=== PATIENT | male | born 1990 | race Caucasian/White ===

== ENCOUNTER 2016-04-16 19:46 | Emergency (ER) | payer OTHER ==
[2016-04-16] MEDS ORDERED: LETS SOLN TOPICAL 1 EA SYR TP ONE (19:55)
[2016-04-16 20:19] VITALS: BP 154/85; PULSE 76; RESP 14; TEMP 98.2; O2SAT 96
[2016-04-16] MEDS ORDERED: TDAP ADULT 0.5 ML INJ (BOOSTRIX) IM ONE (20:47)
[2016-04-16] MEDS ORDERED: HYDROCOD/APAP 5/325 PREPACK#6 BTL TAKEHOME ONE (22:19)
--- NOTE | 2016-04-16 23:00 | UCPHY ---
H & P Time Seen by Provider: 04/16/16 19:56 Patient Type: New HPI/ROS: This patient sustained lacerations to his left thumb, right ring finger and 5th finger from a pinch injury while lifting a heavy refrigerator into pickup truck shortly prior to arrival. He reports moderate pain to the skin on the affected fingers but no bony pain. The injury occurred shortly prior to arrival while he in roommates were attempting with to have the refrigerator. ROS: No numbness or tingling. No difficulty moving the affected fingers. No other injuries. 5 point ROS is otherwise negative. Past Medical/Surgical History: Otherwise healthy Smoking Status: Never smoked Physical Exam: Physical Exam Vital signs are normal. General: No acute distress Eyes: Pupils equal and react to light. Extraocular motions are intact. Cardiac: Brisk capillary refill is intact throughout. Skin: No rash or pallor. Extremities: Atraumatic except for hands Right hand: Patient has a 5th finger laceration oriented longitudinally from the middle phalanx to the metacarpophalangeal joint with subcutaneous tissue exposed. Flexor tendon is exposed but not injured. Appreciate no foreign bodies. There is mild bleeding. That wound is approximately 2 cm in length The right 4th finger wound extends from the PIP joint to the metacarpophalangeal joint longitudinally approximately 3.7 cm in length Left thumb laceration is a flap-type laceration 2.5 cm in length with moderate bleeding. Subcutaneous tissues evident but no foreign bodies Neuro: Alert with no sensorimotor deficits. Infected fingers. He maintains full range of motion of all affected fingers. Constitutional: Initial Vital Signs Temperature (C) 36.8 C 04/16/16 20:15 Heart Rate 76 04/16/16 20:15 Respiratory Rate 14 04/16/16 20:15 Blood Pressure 154/85 H 04/16/16 20:15 O2 Sat (%) 96 04/16/16 20:15 O2 Delivery Mode Room Air Allergies/Adverse Reactions: No Known Allergies Allergy (Unverified 04/16/16 20:15) Home Medications: Medication Instructions Recorded NK [No Known Home Meds] 04/16/16 MDM/Departure - MDM Procedures: Digital block: After verbal consent, using a 50 50 mix of 0.5% Marcaine 2% plain lidocaine, 27 gauge needle, chlorhexidine scrub under sterile conditions- 3 injections were administered to the base of the 4th and 5th fingers, 6 mL mL 4th, and 5 a mild 5th and with good effect. Patient tolerated this well. There were no complications. Digital block: After verbal consent, using a 50 50 mix of 0.5% Marcaine 2% plain lidocaine, 27 gauge needle, chlorhexidine scrub under sterile conditions- 3 injections were administered to the base of the left thumb, 8 mL with good effect. Patient tolerated this well. There were no complications. The wound is total length of the wounds is 8.5 cm The wound was copiously irrigated with saline. The wound was explored for foreign bodies and none were found. The wound was prepped and draped in the normal sterile fashion. The edges of the 4th finger wound were reapproximated using 15 sutures with 4 0 Ethilon-3 interrupted 12 running with good hemostasis and cosmesis. The 5th finger laceration sutured with 4 0 Ethilon, P3 needle-8 running sutures with good hemostasis and cosmesis. The left thumb is sutured with 13 sutures with 4 0 Ethilon good tissue approximation hemostasis The patient tolerated the procedure well. There were no complications. Dressings were placed by our tech and I counseled patient regarding wound care. Medications Given: Discontinued Medications Acetaminophen/Hydrocodone Bitart ([place] 5/325mg Prepack#6) 1 btl TAKEHOME EDNOW ONE Stop: 04/16/16 22:20 Last Admin: 04/16/16 23:17 Dose: 1 btl Diphtheria/Tetanus/Acell Pertussis (Boostrix) 0.5 ml IM .ONCE ONE Stop: 04/16/16 20:48 Last Admin: 04/16/16 21:33 Dose: 0.5 ml ED Course/Re-evaluation: Extensive lacerations without evidence of bony injury, tendon injury or other complicating factors - Depart Disposition: Home, Routine, Self-Care Clinical Impression: Laceration of multiple sites of hand and fingers Qualifiers: Encounter type: initial encounter Laterality: unspecified laterality Qualified Code(s): S61.419A - Laceration without foreign body of unspecified hand, initial encounter; S61.219A - Laceration without foreign body of unspecified finger without damage to nail, initial encounter Condition: Good Instructions: Finger Laceration (ED) Additional Instructions: Diagnosis: Left thumb laceration 2. Multiple finger lacerations Plan: Keep the wound clean and dry for the next 2 days. Then clean daily with warm soapy water Return for suture removal in 10-12 days Ibuprofen and Tylenol for pain. Or Vicodin for pain that prevents sleep. No driving, alcohol work on Vicodin. return sooner for redness discharge or other concerns for infection Stand Alone Forms: Work Excuse Referrals: NONE *PRIMARY CARE P,. [Primary Care Provider] - As per Instructions - PQRS PQRS Measurement: NA
== END 2016-04-16 23:16 | disposition home or self-care (01) ==
LOC: CED 19:46
PROC: 0HQGXZZ Repair Left Hand Skin, External Approach (ICD-10-PCS; principal; 2016-04-16)
PROC: 0HQFXZZ Repair Right Hand Skin, External Approach (ICD-10-PCS; principal; 2016-04-16)
DX: S61.216A Laceration without foreign body of right little finger without damage to nail, initial encounter (principal); S61.214A Laceration without foreign body of right ring finger without damage to nail, initial encounter; S61.012A Laceration without foreign body of left thumb without damage to nail, initial encounter; W23.1XXA Caught, crushed, jammed, or pinched between stationary objects, initial encounter; Y93.E6 Activity, residential relocation; Y92.019 Unspecified place in single-family (private) house as the place of occurrence of the external cause; Y99.8 Other external cause status; Z23 Encounter for immunization
CPT/HCPCS: 12004-PO; 99203-PO; G0463-PO